=== PATIENT | female | born 1995 ===

== ENCOUNTER 2020-09-24 15:12 | Emergency (ER) | payer OTHER ==
[~2020-09-24] VITALS: Ht 165.1 cm; Wt 59.0 kg
[2020-09-24] MEDS ORDERED: BACTRIM DS TAB1 EACH PO (20:10)
== END 2020-09-24 20:49 | disposition home or self-care (01) ==
LOC: ER 15:12
DX: K30 Functional dyspepsia (principal); M94.0 Chondrocostal junction syndrome [Tietze]; N39.0 Urinary tract infection, site not specified